=== PATIENT | male | born 1965 | race Caucasian/White ===

== ENCOUNTER 2016-04-05 14:47 | Emergency (ER) | payer MEDICARE, MEDICAID ==
[~2016-04-05 14:47] MED LIST: Donnatal Elixir 16.2 MG/5 ML UDCUP ONE; Iopamidol 370 76% 100 ML VIAL ONE; Ondansetron HCl/PF 4 MG/2 ML Vial ONE; Sodium Chloride 0.9% 1,000 ML BAG ONE
[2016-04-05 15:55] LABS: Blood, Urine Negative (Negative); Clarity Clear (Clear); Glucose, Urine (Dipstick) Negative (Negative); Leukocyte Negative (Negative); Nitrite Negative (Negative); Protein, Urine (Dipstick) 100 mg/dL (Neg-Trace); Urobilinogen 0.2 mg/dL (0.2-1.0); pH, Urine 5.5 (5.0-9.0)
[2016-04-05 15:57] LABS: Bilirubin Negative (Negative); Specific Gravity, Urine 1.038 (1.002-1.036)
[2016-04-05 16:14] LABS: Icto Negative (Negative); RBC/HPF None Seen HPF (0-3)
[2016-04-05] MEDS ORDERED: Mag-Al Plus 1200 MG/1200 MG/120 MG/30 ML UDCUP ONE (16:23)
[2016-04-05] MEDS ORDERED: Donnatal Elixir 16.2 MG/5 ML UDCUP ONE (16:23)
[2016-04-05] MEDS ORDERED: Lidocaine Viscous Sol 2% 15 ml UD Cup ONE (16:23)
[2016-04-05] MEDS ORDERED: Ondansetron HCl/PF 4 MG/2 ML Vial ONE ×2 (16:31→16:34)
[2016-04-05] MEDS ORDERED: Ketorolac Tromethamine 30 MG/ML VIAL ONE (16:31)
[2016-04-05] MEDS ORDERED: Hyoscyamine Sulfate SL 0.125 mg Tablet ONE (16:32)
[2016-04-05 16:41] LABS: ALT (SGPT) 49 U/L (0-55); AST (SGOT) 46 U/L (5-34); Albumin 3.9 g/dL (3.5-5.0); Alkaline Phosphatase 80 U/L (40-150); Amylase 47 U/L (25-125); Anion Gap 17 mmol/L (10-20); BUN (Urea Nitrogen) 11 mg/dL (8.9-20.6); Calc. Creatinine Clearance 0 mL/min (70-130); Calcium 9.2 mg/dL (7.8-10.44); Carbon Dioxide 23 mmol/L (22-29); Chloride 102 mmol/L (98-107); Estimated GFR-MDRD 84; Globulin 3.2 g/dL (2.4-3.5); Glucose 95 mg/dL (70-105); Lipase 22 U/L (8-78); Potassium 4.2 mmol/L (3.5-5.1); Protein, Total 7.1 g/dL (6.0-8.3); Sodium 138 mmol/L (136-145)
[2016-04-05 16:48] LABS: Band 6 % (5-11); Lymphocytes 30 % (21-51); MDiff Complete? YES; Mean Corpuscular HGB CONC 34.1 g/dL (32.0-36.0); Mean Corpuscular Hemoglobin 29.4 pg (27.0-31.0); Mean Corpuscular Volume 86.1 fl (80.0-94.0); Mean Platelet Volume 7.1 fL (7.4-10.4); Monocytes 9 % (0-10); Neutrophil 55 % (42-75); PLT Morphology Comment Appears Adequate; Platelet Count 276 thou/uL (130-400); RBC Distribution Width 12.4 % (11.5-14.5); Red Blood Cell (RBC) Count 5.45 mill/uL (4.70-6.10); White Blood Cell (WBC) Count 5.3 thou/uL (4.8-10.8)
--- NOTE | 2016-04-05 16:55 | RAD ---
FRONTAL RADIOGRAPH CHEST 04/05/2016 COMPARISON: 08/25/2007 HISTORY: Pain. FINDINGS: There is complete opacification of the right hemithorax with shift of the mediastinal structures to the right, a chronic finding suggesting prior right-sided pneumonectomy. Left lung appears clear. Osseous structures are stable. IMPRESSION: No acute findings. Stable appearance of the chest. POS: OFF
--- NOTE | 2016-04-05 18:19 | CT ---
CT ABDOMEN AND PELVIS 04/05/2016 HISTORY: Abdominal pain. COMPARISON: None. TECHNIQUE: Serial axial CT imaging at 5 mm intervals, from the lung bases through the pubic symphy sis, with IV contrast. Coronal reformatted imaging obtained. FINDINGS: Secondary to a markedly elevated right hemidiaphragm, the right lobe of the liver is not fully imaged. The imaged portions of the liver appear unremarkable. The spleen, pancreas, and adr enal glands are unremarkable. The kidneys appear unremarkable, as well. A stone is seen within the gallbladder lumen, measuring 1.1 cm. Linear pericardial calcification is noted inferiorly. There is a small fat-containing umbilical hernia. No focal area of bowel inflammatory change is seen. The appendix is not discretely visualized on th is examination. No right lower quadrant inflammatory change is noted. The vascular structures of the abdomen/pelvis appear patent. No pelvic retroperitoneal or mesenteri c lymphadenopathy. Nonenlarged nodes are noted at the root of the mesentery and in the peripancreat ic region. The osseous structures demonstrate lower lumbar spine facet hypertrophy and bilateral hi p degenerative change. IMPRESSION No acute findings. Secondary to elevation of the right hemidiaphragm, the liver is not fully imaged on this examination. POS: [facility]
--- NOTE | 2016-04-05 19:11 | ERRECORD ---
[facility] EMERGENCY RECORD HPI ABDOMINAL PAIN (16:26 LLDO) CHIEF COMPLAINT: Patient presents for evaluation of abdominal pain, Patient presents for evaluation of see triage note. 4 days constant pain or nausea w/o relief or vomiting. has had chills and fever. otc meds not helping. HISTORIAN: History provided by patient. LOCATION MALE: Symptoms are localized. QUALITY: Pain is dull in nature, described as aching. SEVERITY: Maximum severity of symptoms severe, Currently symptoms are moderate. RISK FACTORS MALE: Testicular torsion risk factors, not applicable for this patient, Abdominal aortic aneurysm risk factors, include age over 40 years, Coronary artery disease risk factors, include diabetes, include high cholesterol, include hypertension. ROS CONSTITUTIONAL: Historian reports chills, reports fatigue, reports malaise, reports weakness. (16:29 LLDO) EYES: Negative eye review of systems, Historian denies eye pain, denies eye redness, denies eye discharge. (16:33 LLDO) ENT: Negative ears, nose, throat review of systems, Historian denies otalgia, denies rhinorrhea, denies sinus pain, denies sore throat. (16:33 LLDO) CARDIOVASCULAR: Negative cardiovascular review of systems, Historian denies chest pain, no radiation, Historian denies diaphoresis, denies paroxysmal nocturnal dyspnea, denies syncope. (16:33 LLDO) RESPIRATORY: Negative respiratory review of systems, Historian denies cough, denies shortness of breath, denies sputum. (16:33 LLDO) GI: Historian reports abdominal pain, reports anorexia, reports appetite changes, denies constipation, denies diarrhea, denies hematemesis, denies hematochezia, denies jaundice, denies melena, reports nausea, denies vomiting. (16:29 LLDO) MUSCULOSKELETAL: Negative musculoskeletal review of systems, Historian denies arthralgias, denies fall, denies injury, denies myalgias. (16:33 LLDO) NEUROLOGIC: Negative neurologic review of systems, Historian denies confusion, denies focal weakness, denies mental status changes, denies sensory changes. (16:33 LLDO) HEMO/LYMPHATIC: Normal hematologic/lymphatic system review, Historian denies abnormal blood clotting, denies gum bleeding, denies petechiae. (16:33 LLDO) ALLERGIC/IMMUNOLOGIC: Normal allergy/immunologic system review, Historian denies eczema, denies environmental allergies, denies food allergies. (16:33 LLDO) PSYCHIATRIC: Negative psychiatric review of systems, Historian denies alcohol abuse, denies anxiety, denies depression, denies drug &a-1R&a+25V*p+0X*m4676G*c202B*c15G*c2P*p-0X&a-25V&a+1R Name: Richie Vasques : 1965 M50 MedRec: [id number] AcctNum: [id number] Prepared: TueApr 05, 2016 19:13 by Interface Page 1 of 5 pMD [facility] EMERGENCY RECORD abuse, denies hallucinations. (16:33 LLDO) NOTES: All systems reviewed, negative except as described above. (16:29 LLDO) PAST MEDICAL HISTORY MEDICAL HISTORY: Flu vaccine up to date, Tetanus immunization up to date, Past medical history includes history of hyperlipidemia, Past medical history includes history of malignancy, primary site lung, treated with surgery, Past medical history includes musculoskeletal disorder, chronic back pain, Past medical history includes history of hypertension, Notes: SEIZURES, Past medical history includes history of diabetes,. COPD. (15:10 AWAT) MALE SURGICAL HISTORY: Surgical history of orthopedic surgery, Right Elbow, Date of surgery October,, ONE LUNG REMOVED FROM CA,. BACK SX,. (15:10 AWAT) PSYCHIATRIC HISTORY: No previous psychiatric history. (15:10 AWAT) SOCIAL HISTORY: Patient drinks socially, rarely, Patient denies drug use, Patient has no smoking history. (15:10 AWAT) NOTES: Nursing records reviewed, Agree with nursing records, Medication list reviewed. (16:33 LLDO) KNOWN ALLERGIES ALLERGIES: (Unconfirmed) FOOD ALLERGIES: (Unconfirmed) LATEX ALLERGY? (Unconfirmed) No Known Allergies CURRENT MEDICATIONS ProAir HFA: HFA AEROSOL WITH ADAPTER (GRAM) : Strength - 90 mcg : INHALATION Patient Dose: As Needed. (15:05 AWAT) pravastatin: TABLET : Strength - 40 mg : ORAL Patient Dose: 40 mg Oral once a day. (15:05 AWAT) amLODIPine: TABLET : Strength - 5 mg : ORAL Patient Dose: 5 mg Oral 2 times a day. (15:06 AWAT) Spiriva with HandiHaler: CAPSULE, WITH INHALATION DEVICE : Strength - 18 mcg : INHALATION Patient Dose: 2 times a day. (15:06 AWAT) Symbicort: HFA AEROSOL WITH ADAPTER (GRAM) : Strength - 160 mcg-4.5 mcg/actuation : INHALATION Patient Dose: Unknown. (15:07 AWAT) Topamax: TABLET : Strength - 100 mg : ORAL Patient Dose: 100 mg Oral 2 times a day. (15:08 AWAT) &a-1R&a+25V*p+0X*i4091V*c202B*c15G*c2P*p-0X&a-25V&a+1R Name: Richie Vasques : 1965 M50 MedRec: [id number] AcctNum: [id number] Prepared: TueApr 05, 2016 19:13 by Interface Page 2 of 5 pMD [facility] EMERGENCY RECORD VITAL SIGNS VITAL SIGNS: BP: 149/87, Pulse: 95, Resp: 18, Temp: 98.3 (Oral), Pain: 6 (Constant), O2 sat: 97 on Room Air, Time: 04/05/2016 15:00. (15:00 AWAT) BP: 142/92, Pulse: 86, Resp: 20, Temp: 98.7, Time: 04/05/2016 19:01. (19:01 LPOL) PHYSICAL EXAM CONSTITUTIONAL: Vital Signs Reviewed, Patient afebrile, Pulse normal, Blood pressure, BP ELEVATED SLIGHTLY, Respiratory rate normal, Patient appears, uncomfortable, Patient appears, in moderate pain distress, SEVERE WITH PALPATION OR MOVEMENT, Patient alert and oriented to person, place and time, Nursing notes reviewed. (16:31 LLDO) HEAD: Head exam normal, Head exam included findings of head atraumatic, normocephalic. (16:33 LLDO) EYES: Eye exam normal, Eye exam included findings of eyelids normal to inspection, Pupils equally round and reactive to light, Extraocular muscles intact. (16:33 LLDO) ENT: ENT exam normal, Ear exam normal, Nose exam normal. (16:33 LLDO) NECK: Neck exam normal, Neck exam included findings of normal range of motion, Trachea midline, no meningeal signs, no tenderness. (16:33 LLDO) RESPIRATORY CHEST: Respiratory and chest exam normal, Respiratory exam included findings of no respiratory distress, Breath sounds clear, Chest exam included findings of chest movement symmetrical, Chest expansion equal. (16:33 LLDO) CARDIOVASCULAR: Cardiovascular assessment normal, Cardiovascular exam included findings of heart rate regular rate and rhythm, Heart sounds normal. (16:33 LLDO) ABDOMEN MALE: Abdominal exam included findings of abdomen tender, to the epigastric region, to the right upper quadrant, moderate intensity, Bowel sounds, hyperactive, Spleen normal, no distension, no mass, no pulsatile masses, McBurney's point non-tender, no peritoneal signs, Paetl's sign present. (16:31 LLDO) BACK: Back exam normal, Back exam included findings of normal inspection, range of motion normal. (16:33 LLDO) UPPER EXTREMITY: Upper extremity exam normal, Upper extremity exam included findings of inspection normal, Range of motion normal. (16:33 LLDO) LOWER EXTREMITY: Lower extremity exam normal, Lower extremity exam included findings of inspection normal, Range of motion normal. (16:33 LLDO) NEURO: Neuro exam normal, Neuro exam findings include patient oriented to person, place and time, Speech normal, Florence coma scale 15. (16:33 LLDO) SKIN: Skin exam normal, Skin exam included findings of skin warm, &a-1R&a+25V*p+0X*v9631N*c202B*c15G*c2P*p-0X&a-25V&a+1R Name: Richie Vasques : 1965 M50 MedRec: [id number] AcctNum: [id number] Prepared: TueApr 05, 2016 19:13 by Interface Page 3 of 5 pMD [facility] EMERGENCY RECORD dry, and normal in color, no rash. (16:33 LLDO) PSYCHIATRIC: Psychiatric exam normal, Psychiatric exam included findings of patient oriented to person place and time, Normal affect, Judgment normal. (16:33 LLDO) MEDICATION ADMINISTRATION SUMMARY Drug Name: sodium chloride 0.9 % intravenous, Dose Ordered: 1 L, Route: IV Fluid Infusion, Status: Given, Time: 16:44 04/05/2016, Drug Name: Levsin/SL, Dose Ordered: 0.5 mg, Route: Sublingual, Status: Given, Time: 16:40 04/05/2016, Drug Name: Zofran intravenous, Dose Ordered: 8 mg, Route: IV Push, Status: Given, Time: 16:40 04/05/2016, Drug Name: Toradol injection, Dose Ordered: 30 mg, Route: IV Push, Status: Given, Time: 16:39 04/05/2016, Drug Name: *GI COCKTAIL- GREEN, Dose Ordered: * , Route: Oral, Status: Given, Time: 16:27 04/05/2016, *Additional information available in notes, Detailed record available in Medication Service section. PROBLEM LIST No recorded problems DIAGNOSIS (18:49 LLDO) FINAL: PRIMARY: Cholelithiasis, ADDITIONAL: ACUTE CHOLECYSTITIS, UTI SITE NOT SPECIFIED. PRESCRIPTION (18:50 LLDO) Keflex: CAPSULE (HARD, SOFT, ETC.) : 500 mg : ORAL : Quantity: 1 Unit: cap(s) Route: ORAL Schedule: 3 times a day Dispense: 30 May substitute. Refills: No Refills . NOTES: No Refills. Septra DS: TABLET : 800 mg-160 mg : ORAL : Quantity: 1 Unit: tab(s) Route: ORAL Schedule: 2 times a day (before meals) Dispense: 20 May substitute. Refills: No Refills . NOTES: ^s=No Refills No Refills. Tylenol-Codeine #3: TABLET : 300 mg-30 mg : ORAL : Quantity: 1-2 Unit: tab(s) Route: ORAL Schedule: every 4 hours prn Dispense: 30 Unit: tab(s) May substitute. Refills: No Refills . NOTES: ^s=^s=No Refills No Refills No Refills. DISPOSITION PATIENT: Disposition Type: Discharge, Disposition: *Discharge Home. (18:49 LLDO) &a-1R&a+25V*p+0X*z4777M*c202B*c15G*c2P*p-0X&a-25V&a+1R Name: Richie Vasques : 1965 M50 MedRec: [id number] AcctNum: [id number] Prepared: TueApr 05, 2016 19:13 by Interface Page 4 of 5 pMD [facility] EMERGENCY RECORD Patient left the department. (19:06 LPOL) Anaya: AWAT=JUSTICE Walter, Marquise LL=MD Anirudh, Jose LPOL=JUSTICE Dawn, Erika &a-1R&a+25V*p+0X*e2179M*c202B*c15G*c2P*p-0X&a-25V&a+1R Name: Richie Vasques : 1965 M50 MedRec: [id number] AcctNum: [id number] Prepared: TueApr 05, 2016 19:13 by Interface Page 5 of 5 pMD [facility]
--- NOTE | 2016-04-05 19:17 | PICIS ---
[facility] EMERGENCY RECORD TRIAGE (15:04 AWAT) TRIAGE NOTES: REPORTS THAT HE HAS BEEN SICK EVERY SINCE EATING EGGS LAST TUESDAY MORNING. CONSTANT GASTRIC REGIONAL PAIN W NAUSEA. HE SAYS HE HAS HAD CHILLS & SWEATS SINCE THEN. WHEN HE EATS NOW HE HAS INCREASED GASTRIC PAIN. (15:04 AWAT) PATIENT: NAME: Richie Vasques, AGE: 50, GENDER: male, : Tue1965, TIME OF GREET: TueApr 05, 2016 14:48, PREFERRED LANGUAGE: Georgian, ETHNICITY: Not or , ECODE BILLING MAP: [facility], SSN: [id number], Zip Code: [address], KG WEIGHT: [phone], PHONE: , , , PERSON ID: [id number], PCP: DONNA SIMS. (15:04 AWAT) COMPLAINT: POSS FOOD POISON. (15:04 AWAT) ADMISSION: URGENCY: 4 Non Urgent, ADMISSION SOURCE: Home, TRANSPORT: Walk-in, BED: ED -H01. (15:04 AWAT) SIRS SCORING: Heart Rate 55-109 (0), Temp range 96.8-101.1 (0), respiratory rate 12-24 (0), Mental Status altered: no (0). (15:10 AWAT) PROVIDERS: TRIAGE NURSE: Marquise Walter RN. (15:04 AWAT) VITAL SIGNS: BP 149/87, Pulse 95, Resp 18, Temp 98.3, (Oral), Pain 6, (Constant), O2 Sat 97, on Room Air, Time 04/05/2016 15:00. (15:00 AWAT) PREVIOUS VISIT ALLERGIES: No Known Allergies. (15:04 AWAT) No Known Allergies. (15:10 AWAT) KNOWN ALLERGIES ALLERGIES: (Unconfirmed) FOOD ALLERGIES: (Unconfirmed) LATEX ALLERGY? (Unconfirmed) No Known Allergies CURRENT MEDICATIONS ProAir HFA: HFA AEROSOL WITH ADAPTER (GRAM) : Strength - 90 mcg : INHALATION Patient Dose: As Needed. (15:05 AWAT) pravastatin: TABLET : Strength - 40 mg : ORAL Patient Dose: 40 mg Oral once a day. (15:05 AWAT) amLODIPine: TABLET : Strength - 5 mg : ORAL Patient Dose: 5 mg Oral 2 times a day. (15:06 AWAT) Spiriva with HandiHaler: CAPSULE, WITH INHALATION DEVICE : Strength - 18 mcg : INHALATION Patient Dose: 2 times a day. (15:06 AWAT) Symbicort: HFA AEROSOL WITH ADAPTER (GRAM) : Strength - 160 mcg-4.5 mcg/actuation : INHALATION Patient Dose: Unknown. (15:07 AWAT) Topamax: TABLET : Strength - 100 mg : ORAL &a-1R&a+25V*p+0X*q1894A*c202B*c15G*c2P*p-0X&a-25V&a+1R Name: Richie Vasques : 1965 M50 MedRec: [id number] AcctNum: [id number] Prepared: TueApr 05, 2016 19:18 by Interface Page 1 of 10 pMD [facility] EMERGENCY RECORD Patient Dose: 100 mg Oral 2 times a day. (15:08 AWAT) VITAL SIGNS VITAL SIGNS: BP: 149/87, Pulse: 95, Resp: 18, Temp: 98.3 (Oral), Pain: 6 (Constant), O2 sat: 97 on Room Air, Time: 04/05/2016 15:00. (15:00 AWAT) BP: 142/92, Pulse: 86, Resp: 20, Temp: 98.7, Time: 04/05/2016 19:01. (19:01 LPOL) NURSING ASSESSMENT: ABDOMEN (15:30 AWAT) CONSTITUTIONAL: Simple assessment performed, Patient arrives ambulatory, Gait steady, History obtained from patient, Patient appears comfortable, Patient cooperative, Patient alert, Oriented to person, place and time, Skin warm, Skin dry, Skin normal in color, Mucous membranes pink, Mucous membranes moist, Patient is well-groomed, Patient complains of GASTRIC PAIN, CHILLS, SWEATS. PAIN: Onset of pain 04/01/2016 17:32, on a scale 0-10 patient rates pain as 6. ABDOMEN: Abdomen assessment findings include abdomen symmetrical, Abdomen soft, tender, to the epigastric region, Associated with nausea. GENITOURINARY MALE: Notes: DENIES PROBLEMS IN THIS REGION. NOTES: Emotional support needed and given, Patient tolerated procedure well. SAFETY: Side rails up, Cart/Stretcher in lowest position, Call light within reach, Hospital ID band on, Physician notified of above findings. NURSING PROCEDURE: DISCHARGE NOTE (19:01 LPOL) DISCHARGE: Patient discharged to home, ambulating without assistance, accompanied by //partner, Summary of Care printed/ provided, Patient requested and was provided an electronic copy of Discharge Instructions, Transition record given to patient, Discharge instructions given to patient, Simple or moderate discharge teaching performed, by mar, Prescriptions given and instructions on side effects given, Name of prescription(s) given: bactrim/tylenol#3/keflex, Medication reconciliation form given, Above person(s) verbalized understanding of discharge instructions and follow-up care, Patient treated and evaluated by physician. BELONGINGS: Belongings and valuables with patient upon arrival to the Emergency Department include:, Belongings remain with patient, Valuables remain with patient. VITAL SIGNS: BP: 142, / 92, Pulse: 86, Resp: 20, Temp: 98.7. NURSING PROCEDURE: IV (16:15 AWAT) PATIENT IDENITIFIER: Patient actively involved in identification process, Patient's identity verified by patient stating name, Patient's identity verified by patient stating date, Patient's identity verified by hospital ID robby, Patient's identity verified by family member. &a-1R&a+25V*p+0X*[id number]*c202B*c15G*c2P*p-0X&a-25V&a+1R Name: Richie Vasques Carlos : 1965 10 MedRec: [id number] AcctNum: [id number] Prepared: TueApr 05, 2016 19:18 by Interface Page 2 of 10 pMD [facility] EMERGENCY RECORD IV SITE 1: IV therapy indicated for hydration, IV therapy indicated for medication administration, IV established, to the left hand, using a 20 gauge catheter, in one attempt, IV site prepped with chloraprep, Saline lock established, Labs drawn at time of placement, labeled in the presence of the patient and sent to lab. FOLLOW-UP SITE 1: After procedure, sterile transparent dressing applied. NOTES: Patient tolerated procedure well. SAFETY: Side rails up, Cart/Stretcher in lowest position, Family at bedside, Call light within reach, Hospital ID band on, Physician notified of above findings. NURSING PROCEDURE: NURSE NOTES (17:10 AWAT) NURSES NOTES: Notes: PT HAS BEEN TO XRAY, THEN TO CT, NOW BACK TO THE HALLWAY BED. ORDER DETAILS Order Name: Amylase, Status: Active, Time: 16:14 04/05/2016, User: LL, - Ordered for: MD Hernandez Lloyd, - Entered by: MD Hernandez Lloyd - Rachel Apr 05, 2016 16:14, - Quantity: 1, Order Name: CBC with Differential, Status: Active, Time: 16:14 04/05/2016, User: LL, - Ordered for: MD Hernandez Lloyd, - Entered by: MD Hernandez Lloyd - Rachel Apr 05, 2016 16:14, - Quantity: 1, Order Name: Comprehensive Metabolic Panel, Status: Active, Time: 16:14 04/05/2016, User: LL, - Ordered for: MD Hernandez Lloyd, - Entered by: MD Hernandez Lloyd - [facility] Apr 05, 2016 16:14, - Quantity: 1, Order Name: CT Abdomen Pelvis W Con, Status: Active, Time: 16:23 04/05/2016, User: NENA, - Ordered for: MD Hernandez Lloyd, - Entered by: MD Hernandez Lloyd - [facility] Apr 05, 2016 16:23, - Quantity: 1, Order Name: Culture, Blood, Status: Active, Time: 16:21 04/05/2016, User: LL, - Ordered for: MD Hernandez Lloyd, - Entered by: MD Hernandez Lloyd - [facility] Apr 05, 2016 16:21, - Quantity: 1, Order Name: Culture, Urine, Status: Active, Time: 16:14 04/05/2016, User: LL, - Ordered for: MD Hernandez Lloyd, - Entered by: MD Hernandez Lloyd - [facility] Apr 05, 2016 16:14, - Quantity: 1, Order Name: Lactic Acid with repeat, Status: Active, Time: 16:22 04/05/2016, User: LLDO, &a-1R&a+25V*p+0X*w7011C*c202B*c15G*c2P*p-0X&a-25V&a+1R Name: Richie Vasques : 1965 M50 MedRec: [id number] AcctNum: [id number] Prepared: TueApr 05, 2016 19:18 by Interface Page 3 of 10 pMD [facility] EMERGENCY RECORD - Ordered for: MD Hernandez Lloyd, - Entered by: MD Hernandez Lloyd - TueApr 05, 2016 16:22, - Quantity: 1, Order Name: Lipase, Status: Active, Time: 16:14 04/05/2016, User: LL, - Ordered for: MD Hernandez Lloyd, - Entered by: MD Hernandez Lloyd - TueApr 05, 2016 16:14, - Quantity: 1, Order Name: SALINE LOCK, Status: Done, Time: 16:19 04/05/2016, User: EDILMA, - Ordered for: MD Hernandez Lloyd, - Entered by: MD Hernandez Lloyd - TueApr 05, 2016 16:14, - Quantity: 1, Order Name: Urinalysis with Microscopic, Status: Active, Time: 15:30 04/05/2016, User: JPER, - Ordered for: MD Hernandez Lloyd, - Entered by: JUSTICE Patricio, Nurys - TueApr 05, 2016 15:30, - Quantity: 1, Order Name: XR Chest 1 View Portable, Status: Active, Time: 16:14 04/05/2016, User: NENA, - Ordered for: MD Hernandez Lloyd, - Entered by: MD Hernandez Lloyd - TueApr 05, 2016 16:14, - Quantity: 1. MEDICATION ADMINISTRATION SUMMARY Drug Name: sodium chloride 0.9 % intravenous, Dose Ordered: 1 L, Route: IV Fluid Infusion, Status: Given, Time: 16:44 04/05/2016, Drug Name: Levsin/SL, Dose Ordered: 0.5 mg, Route: Sublingual, Status: Given, Time: 16:40 04/05/2016, Drug Name: Zofran intravenous, Dose Ordered: 8 mg, Route: IV Push, Status: Given, Time: 16:40 04/05/2016, Drug Name: Toradol injection, Dose Ordered: 30 mg, Route: IV Push, Status: Given, Time: 16:39 04/05/2016, Drug Name: *GI COCKTAIL- GREEN, Dose Ordered: * , Route: Oral, Status: Given, Time: 16:27 04/05/2016, *Additional information available in notes, Detailed record available in Medication Service section. MEDICATION SERVICE GI COCKTAIL- GREEN: Free Text order: GI COCKTAIL- GREEN : Dose: 40 mL : Oral (phenobarbital/Hyoscyamine Sulfate/atropine sulfate/Scopolamine Hydrobromide) [10 mL] Lidocaine Viscous (lidocaine HCl) [10 mL] MAG-AL (magnesium hydr : Oral Ordered by: Jose Hernandez MD Entered by: Jose Hernandez MD TueApr 05, 2016 16:12 , Acknowledged by: Marquise Walter RN TueApr 05, 2016 16:22 Documented as given by: Marquise Walter RN TueApr 05, 2016 16:27 Patient, Medication, Dose, Route and Time verified prior to administration. Amount given: 1 dose, Site: Medication administered P.O., Correct &a-1R&a+25V*p+0X*d0366E*c202B*c15G*c2P*p-0X&a-25V&a+1R Name: Richie Vasques : 1965 M50 MedRec: [id number] AcctNum: [id number] Prepared: TueApr 05, 2016 19:18 by Interface Page 4 of 10 pMD [facility] EMERGENCY RECORD patient, time, route, dose and medication confirmed prior to administration, Patient advised of actions and side-effects prior to administration, Allergies confirmed and medications reviewed prior to administration, Administered by awaters, Patient in position of comfort, Side rails up, Cart in lowest position, Family at bedside. : Follow Up : Response assessment performed, No signs or symptoms of allergic reaction noted, Decreased pain. (19:02 LPOL) Levsin/SL: Order: Levsin/SL (hyoscyamine sulfate) - Dose: 0.5 mg : Sublingual Schedule: Now Ordered by: Jose Hernandez MD Entered by: Jose Hernandez MD TueApr 05, 2016 16:25 , Acknowledged by: Marquise Walter RN TueApr 05, 2016 16:29 Documented as given by: Marquise Walter RN TueApr 05, 2016 16:40 Patient, Medication, Dose, Route and Time verified prior to administration. Amount given: 0.5MG, Site: Medication administered S.L., Correct patient, time, route, dose and medication confirmed prior to administration, Patient advised of actions and side-effects prior to administration, Allergies confirmed and medications reviewed prior to administration, Administered by AW, Patient in position of comfort, Side rails up, Cart in lowest position, Family at bedside, AFTER READING BACK & VERIFYING DOSE WITH DR HERNANDEZ. : Follow Up : Response assessment performed, No signs or symptoms of allergic reaction noted, Decreased pain. (19:02 LPOL) sodium chloride 0.9 % intravenous: Order: sodium chloride 0.9 % intravenous (0.9 % sodium chloride) - Dose: 1 L : IV Fluid Infusion Schedule: Bolus Ordered by: Jose Hernandez MD Entered by: Marquise Walter RN TueApr 05, 2016 16:44 Documented as given by: Marquise Walter RN TueApr 05, 2016 16:44 Patient, Medication, Dose, Route and Time verified prior to administration. Amount given: 1LITER, IV SITE #1 IV fluids established for hydration, IV SITE #1 into left hand, IV SITE #1 1st bag hung, amount 1 Liter hung, IV SITE #1 bolus of 1000 ml established, IV SITE #1 Rate of bolus, wide open, Catheter placement confirmed via flush prior to administration, IV site without signs or symptoms of infiltration during medication administration, No swelling during administration, No drainage during administration, IV flushed after administration, Correct patient, time, route, dose and medication confirmed prior to administration, Patient advised of actions and side-effects prior to administration, Allergies confirmed and medications reviewed prior to administration, Administered by JOSHUA RENDON, Patient in position of comfort, Side rails up, Cart in lowest position, Family at bedside. : Follow Up : Response assessment performed, No signs or &a-1R&a+25V*p+0X*p0426W*c202B*c15G*c2P*p-0X&a-25V&a+1R Name: Richie Vasques : 1965 M50 MedRec: [id number] AcctNum: [id number] Prepared: TueApr 05, 2016 19:18 by Interface Page 5 of 10 pMD [facility] - [facility] EMERGENCY RECORD symptoms of allergic reaction noted, _IV SITE #1:_, IV fluid infusion discontinued, on TueApr 05, 2016 18:30, Total fluid hydration time IV site 1 1 hour, 50 minutes, ., Total amount infused: 1000, IV Discontinued with catheter intact. (19:03 LPOL) Toradol injection: Order: Toradol injection (ketorolac tromethamine) - Dose: 30 mg : IV Push Schedule: Now Ordered by: Jose Hernandez MD Entered by: Jose Hernandez MD TueApr 05, 2016 16:24 , Acknowledged by: Marquise Walter RN TueApr 05, 2016 16:29 Documented as given by: Marquise Walter RN TueApr 05, 2016 16:39 Patient, Medication, Dose, Route and Time verified prior to administration. Amount given: 30mg, IV SITE #1 IVP, initial medication, Slowly, Catheter placement confirmed via flush prior to administration, IV site without signs or symptoms of infiltration during medication administration, No swelling during administration, No drainage during administration, IV flushed after administration, Correct patient, time, route, dose and medication confirmed prior to administration, Patient advised of actions and side-effects prior to administration, Allergies confirmed and medications reviewed prior to administration, Administered by aw, Patient in position of comfort, Side rails up, Cart in lowest position, Family at bedside. : Follow Up : Response assessment performed, No signs or symptoms of allergic reaction noted, Decreased pain, _IV SITE #1:_. (19:03 LPOL) Zofran intravenous: Order: Zofran intravenous (ondansetron HCl) - Dose: 8 mg : IV Push Schedule: Now Ordered by: Jose Hernandez MD Entered by: Jose Hernandez MD TueApr 05, 2016 16:24 , Acknowledged by: Marquise Walter RN TueApr 05, 2016 16:28 Documented as given by: Marquise Walter RN TueApr 05, 2016 16:40 Patient, Medication, Dose, Route and Time verified prior to administration. Amount given: 8MG, IV SITE #1 IVP, subsequent different medication, Slowly, Catheter placement confirmed via flush prior to administration, IV site without signs or symptoms of infiltration during medication administration, No swelling during administration, No drainage during administration, IV flushed after administration, Correct patient, time, route, dose and medication confirmed prior to administration, Patient advised of actions and side-effects prior to administration, Allergies confirmed and medications reviewed prior to administration, Administered by AWATERS, Patient in position of comfort, Side rails up, Cart in lowest position, Family at bedside. : Follow Up : Response assessment performed, No signs or symptoms of allergic reaction noted, Decreased nausea, _IV SITE #1:_. (19:03 LPOL) HPI ABDOMINAL PAIN (16:26 LLDO) &a-1R&a+25V*p+0X*g0405T*c202B*c15G*c2P*p-0X&a-25V&a+1R Name: Richie Vasques : 1965 M50 MedRec: [id number] AcctNum: [id number] Prepared: TueApr 05, 2016 19:18 by Interface Page 6 of 10 pMD [facility] EMERGENCY RECORD CHIEF COMPLAINT: Patient presents for evaluation of abdominal pain, Patient presents for evaluation of see triage note. 4 days constant pain or nausea w/o relief or vomiting. has had chills and fever. otc meds not helping. HISTORIAN: History provided by patient. LOCATION MALE: Symptoms are localized. QUALITY: Pain is dull in nature, described as aching. SEVERITY: Maximum severity of symptoms severe, Currently symptoms are moderate. RISK FACTORS MALE: Testicular torsion risk factors, not applicable for this patient, Abdominal aortic aneurysm risk factors, include age over 40 years, Coronary artery disease risk factors, include diabetes, include high cholesterol, include hypertension. ROS CONSTITUTIONAL: Historian reports chills, reports fatigue, reports malaise, reports weakness. (16:29 LLDO) EYES: Negative eye review of systems, Historian denies eye pain, denies eye redness, denies eye discharge. (16:33 LLDO) ENT: Negative ears, nose, throat review of systems, Historian denies otalgia, denies rhinorrhea, denies sinus pain, denies sore throat. (16:33 LLDO) CARDIOVASCULAR: Negative cardiovascular review of systems, Historian denies chest pain, no radiation, Historian denies diaphoresis, denies paroxysmal nocturnal dyspnea, denies syncope. (16:33 LLDO) RESPIRATORY: Negative respiratory review of systems, Historian denies cough, denies shortness of breath, denies sputum. (16:33 LLDO) GI: Historian reports abdominal pain, reports anorexia, reports appetite changes, denies constipation, denies diarrhea, denies hematemesis, denies hematochezia, denies jaundice, denies melena, reports nausea, denies vomiting. (16:29 LLDO) MUSCULOSKELETAL: Negative musculoskeletal review of systems, Historian denies arthralgias, denies fall, denies injury, denies myalgias. (16:33 LLDO) NEUROLOGIC: Negative neurologic review of systems, Historian denies confusion, denies focal weakness, denies mental status changes, denies sensory changes. (16:33 LLDO) HEMO/LYMPHATIC: Normal hematologic/lymphatic system review, Historian denies abnormal blood clotting, denies gum bleeding, denies petechiae. (16:33 LLDO) ALLERGIC/IMMUNOLOGIC: Normal allergy/immunologic system review, Historian denies eczema, denies environmental allergies, denies food allergies. (16:33 LLDO) PSYCHIATRIC: Negative psychiatric review of systems, Historian denies alcohol abuse, denies anxiety, denies depression, denies drug abuse, denies hallucinations. (16:33 LLDO) &a-1R&a+25V*p+0X*b3686S*c202B*c15G*c2P*p-0X&a-25V&a+1R Name: Richie Vasques : 1965 M50 MedRec: [id number] AcctNum: [id number] Prepared: TueApr 05, 2016 19:18 by Interface Page 7 of 10 pMD [facility] EMERGENCY RECORD NOTES: All systems reviewed, negative except as described above. (16:29 LLDO) PAST MEDICAL HISTORY MEDICAL HISTORY: Flu vaccine up to date, Tetanus immunization up to date, Past medical history includes history of hyperlipidemia, Past medical history includes history of malignancy, primary site lung, treated with surgery, Past medical history includes musculoskeletal disorder, chronic back pain, Past medical history includes history of hypertension, Notes: SEIZURES, Past medical history includes history of diabetes,. COPD. (15:10 AWAT) MALE SURGICAL HISTORY: Surgical history of orthopedic surgery, Right Elbow, Date of surgery October,, ONE LUNG REMOVED FROM CA,. BACK SX,. (15:10 AWAT) PSYCHIATRIC HISTORY: No previous psychiatric history. (15:10 AWAT) SOCIAL HISTORY: Patient drinks socially, rarely, Patient denies drug use, Patient has no smoking history. (15:10 AWAT) NOTES: Nursing records reviewed, Agree with nursing records, Medication list reviewed. (16:33 LLDO) PHYSICAL EXAM CONSTITUTIONAL: Vital Signs Reviewed, Patient afebrile, Pulse normal, Blood pressure, BP ELEVATED SLIGHTLY, Respiratory rate normal, Patient appears, uncomfortable, Patient appears, in moderate pain distress, SEVERE WITH PALPATION OR MOVEMENT, Patient alert and oriented to person, place and time, Nursing notes reviewed. (16:31 LLDO) HEAD: Head exam normal, Head exam included findings of head atraumatic, normocephalic. (16:33 LLDO) EYES: Eye exam normal, Eye exam included findings of eyelids normal to inspection, Pupils equally round and reactive to light, Extraocular muscles intact. (16:33 LLDO) ENT: ENT exam normal, Ear exam normal, Nose exam normal. (16:33 LLDO) NECK: Neck exam normal, Neck exam included findings of normal range of motion, Trachea midline, no meningeal signs, no tenderness. (16:33 LLDO) RESPIRATORY CHEST: Respiratory and chest exam normal, Respiratory exam included findings of no respiratory distress, Breath sounds clear, Chest exam included findings of chest movement symmetrical, Chest expansion equal. (16:33 LLDO) CARDIOVASCULAR: Cardiovascular assessment normal, Cardiovascular exam included findings of heart rate regular rate and rhythm, Heart sounds normal. (16:33 LLDO) ABDOMEN MALE: Abdominal exam included findings of abdomen tender, to the epigastric region, to the right upper quadrant, moderate intensity, Bowel &a-1R&a+25V*p+0X*u7915I*c202B*c15G*c2P*p-0X&a-25V&a+1R Name: Richie Vasques Carlos : 1965 M50 MedRec: [id number] AcctNum: [id number] Prepared: TueApr 05, 2016 19:18 by Interface Page 8 of 10 pMD [facility] EMERGENCY RECORD sounds, hyperactive, Spleen normal, no distension, no mass, no pulsatile masses, McBurney's point non-tender, no peritoneal signs, Patel's sign present. (16:31 LLDO) BACK: Back exam normal, Back exam included findings of normal inspection, range of motion normal. (16:33 LLDO) UPPER EXTREMITY: Upper extremity exam normal, Upper extremity exam included findings of inspection normal, Range of motion normal. (16:33 LLDO) LOWER EXTREMITY: Lower extremity exam normal, Lower extremity exam included findings of inspection normal, Range of motion normal. (16:33 LLDO) NEURO: Neuro exam normal, Neuro exam findings include patient oriented to person, place and time, Speech normal, Alba coma scale 15. (16:33 LLDO) SKIN: Skin exam normal, Skin exam included findings of skin warm, dry, and normal in color, no rash. (16:33 LLDO) PSYCHIATRIC: Psychiatric exam normal, Psychiatric exam included findings of patient oriented to person place and time, Normal affect, Judgment normal. (16:33 LLDO) EVENTS TRANSFER: Triage to Emergency Main ED -H01. (TueApr 05, 2016 15:04 AWAT) Emergency Main ED -H01 to Triage. (15:08 AWAT) Emergency Triage to Main ED -H01. (15:41 AWAT) Removed from Emergency Main ED -H01. (19:06 LPOL) PROBLEM LIST No recorded problems DIAGNOSIS (18:49 LLDO) FINAL: PRIMARY: Cholelithiasis, ADDITIONAL: ACUTE CHOLECYSTITIS, UTI SITE NOT SPECIFIED. DISPOSITION PATIENT: Disposition Type: Discharge, Disposition: *Discharge Home. (18:49 LLDO) Patient left the department. (19:06 LPOL) INSTRUCTION (18:51 LLDO) DISCHARGE: UTI CYSTITIS MALE ADULT, CHOLELITHIASIS WITH COLIC PRESUMED. FOLLOWUP: Follow up with Primary Care Physician in 7-10 days. SPECIAL: Follow-up with your PCP. PRESCRIPTION (18:50 LLDO) Keflex: CAPSULE (HARD, SOFT, ETC.) : 500 mg : ORAL : Quantity: 1 Unit: cap(s) Route: ORAL Schedule: 3 times a day Dispense: 30 May substitute. Refills: No Refills . &a-1R&a+25V*p+0X*a0833Q*c202B*c15G*c2P*p-0X&a-25V&a+1R Name: Richie Vasques Carlos : 1965 M50 MedRec: [id number] AcctNum: [id number] Prepared: TueApr 05, 2016 19:18 by Interface Page 9 of 10 pMD [facility] EMERGENCY RECORD NOTES: No Refills. Septra DS: TABLET : 800 mg-160 mg : ORAL : Quantity: 1 Unit: tab(s) Route: ORAL Schedule: 2 times a day (before meals) Dispense: 20 May substitute. Refills: No Refills . NOTES: ^s=No Refills No Refills. Tylenol-Codeine #3: TABLET : 300 mg-30 mg : ORAL : Quantity: 1-2 Unit: tab(s) Route: ORAL Schedule: every 4 hours prn Dispense: 30 Unit: tab(s) May substitute. Refills: No Refills . NOTES: ^s=^s=No Refills No Refills No Refills. IMAGING *DISCHARGE INSTRUCTIONS RECEIPT: Image captured from scanner. (19:04 LPOL) Page 2 added. Image captured from scanner. (19:04 LPOL) *SUPPLY CHARGE SHEET: Image captured from scanner. (19:08 LPOL) ADMIN (18:51 LLDO) DIGITAL SIGNATURE: MD Hernandez Lloyd. Anaya: AWAT=JUSTICE Walter, Marquise LLDO=MD Hernandez Lloyd LPOL=JUSTICE Dawn, Erika &a-1R&a+25V*p+0X*h7718Z*c202B*c15G*c2P*p-0X&a-25V&a+1R Name: Layo Richie Carlos : 1965 M50 MedRec: [id number] AcctNum: [id number] Prepared: TueApr 05, 2016 19:18 by Interface Page 10 of 10 pMD [facility] MEDICATION RECONCILIATION You were seen in the Emergency Department on: TueApr 05, 2016 KNOWN ALLERGIES ALLERGIES: (Unconfirmed) FOOD ALLERGIES: (Unconfirmed) LATEX ALLERGY? (Unconfirmed) No Known Allergies MEDICATIONS GIVEN WHILE IN THE EMERGENCY DEPARTMENT GI COCKTAIL- GREEN : Dose: 40 mL : Oral (phenobarbital/Hyoscyamine Sulfate/atropine sulfate/Scopolamine Hydrobromide) [10 mL] Lidocaine Viscous (lidocaine HCl) [10 mL] MAG-AL (magnesium hydr : Oral Toradol injection (ketorolac tromethamine) - Dose: 30 milligram(s) : IV Push Zofran intravenous (ondansetron HCl) - Dose: 8 milligram(s) : IV Push Levsin/SL (hyoscyamine sulfate) - Dose: 0.5 milligram(s) : Sublingual sodium chloride 0.9 % intravenous (0.9 % sodium chloride) - Dose: 1 liter(s) : IV Fluid Infusion HOME MEDICATIONS CONTINUE PRESCRIBED amLODIPine : TABLET : Strength - 5 mg : ORAL Continue as prescribed Patient had been takin mg Oral 2 times a day. pravastatin : TABLET : Strength - 40 mg : ORAL Continue as prescribed Patient had been takin mg Oral once a day. ProAir HFA : HFA AEROSOL WITH ADAPTER (GRAM) : Strength - 90 mcg : INHALATION Continue as prescribed Patient had been taking: As Needed. Spiriva with HandiHaler : CAPSULE, WITH INHALATION DEVICE : Strength - 18 mcg : INHALATION Continue as prescribed Patient had been takin times a day. &a-1R&a+25V*p+0X*[id number]*c202B*c15G*c2P*p-0X&a-25V&a+1R Name: Richie Vasques : 1965 M50 MedRec: [id number] AcctNum: [id number] Prepared: TueApr 05, 2016 19:18 by Interface pMD [facility] MEDICATION RECONCILIATION Symbicort : HFA AEROSOL WITH ADAPTER (GRAM) : Strength - 160 mcg-4.5 mcg/actuation : INHALATION Continue as prescribed Patient had been taking: Dose unknown Topamax : TABLET : Strength - 100 mg : ORAL Continue as prescribed Patient had been takin mg Oral 2 times a day. Notes from the emergency department Reviewed with family Reviewed with patient PRESCRIPTIONS (3) Printed (3) Keflex : CAPSULE (HARD, SOFT, ETC.) : 500 mg : ORAL Quantity: 1, Unit: cap(s), Route: ORAL, Schedule: 3 times a day, Dispense: 30 Septra DS : TABLET : 800 mg-160 mg : ORAL Quantity: 1, Unit: tab(s), Route: ORAL, Schedule: 2 times a day (before meals), Dispense: 20 &a-1R&a+25V*p+0X*[id number]*c202B*c15G*c2P*p-0X&a-25V&a+1R Name: Richie Vasques : 1965 M50 MedRec: [id number] AcctNum: [id number] Prepared: TueApr 05, 2016 19:18 by Interface pMD [facility]TDD
== END 2016-04-05 19:00 | disposition home or self-care (01) ==
LOC: MADERS 14:47
DX: K80.00 Calculus of gallbladder with acute cholecystitis without obstruction (principal); N39.0 Urinary tract infection, site not specified; I10 Essential (primary) hypertension; E11.9 Type 2 diabetes mellitus without complications; J44.9 Chronic obstructive pulmonary disease, unspecified; E78.5 Hyperlipidemia, unspecified; Z85.118 Personal history of other malignant neoplasm of bronchus and lung; Z79.899 Other long term (current) drug therapy
CPT/HCPCS: 36415; 71010; 74177; 80053; 81001; 82150; 83605; 83690; 85025; 87040; 87086; 96361; 96374; 96375; J1885; J2405; J7050

== ENCOUNTER 2017-12-11 18:26 | Emergency (ER) | payer MEDICARE, MEDICAID ==
[~2017-12-11 18:26] MED LIST changes: -Donnatal Elixir 16.2 MG/5 ML UDCUP ONE; -Iopamidol 370 76% 100 ML VIAL ONE; -Ondansetron HCl/PF 4 MG/2 ML Vial ONE
[2017-12-11 18:57] LABS: #Basophils 0.1 thou/uL (0.0-0.2); #Eosinphils 0.1 thou/uL (0.0-0.7); #Lymphocytes 3.7 thou/uL (1.20-3.40); #Monocytes 0.7 thou/uL (0.11-0.59); #Neutrophils 4.9 thou/uL (1.40-6.50); %Basophils 1.3 % (0.0-1.0); %Eosinophils 0.7 % (0.0-10.0); %Lymphocytes 39.2 % (21.0-51.0); %Monocytes 7.1 % (0.0-10.0); %Neutrophils 51.8 % (42.0-75.0); Hemoglobin 15.1 g/dL (14.0-18.0); Mean Corpuscular HGB CONC 32.9 g/dL (32.0-36.0); Mean Corpuscular Hemoglobin 28.6 pg (27.0-31.0); Mean Corpuscular Volume 86.7 fL (78.0-98.0); Mean Platelet Volume 6.4 fL (7.4-10.4); Platelet Count 348 thou/uL (130-400); RBC Distribution Width 12.3 % (11.5-14.5); Red Blood Cell (RBC) Count 5.28 mill/uL (4.70-6.10); White Blood Cell (WBC) Count 9.5 thou/uL (4.8-10.8)
[2017-12-11 19:08] LABS: Anion Gap 13 mmol/L (10-20); BUN (Urea Nitrogen) 11 mg/dL (8.9-20.6); Calc. Creatinine Clearance 0 mL/min (70-130); Calcium 9.8 mg/dL (7.8-10.44); Carbon Dioxide 25 mmol/L (22-29); Chloride 103 mmol/L (98-107); Estimated GFR-MDRD Greater than 90; Glucose 138 mg/dL (70-105); Potassium 3.7 mmol/L (3.5-5.1); Sodium 137 mmol/L (136-145)
[2017-12-11 19:12] LABS: CKMB 2.2 ng/mL (0-6.6); Troponin I Less than 0.010 ng/mL (< 0.028)
--- NOTE | 2017-12-11 19:18 | RAD ---
CHEST ONE VIEW: History: Chest pain. Comparison: 04-05-16 FINDINGS: Cardiac silhouette is predominately obscured by opacification of the right hemithorax that is similar in appearance to the prior study. Pulmonary vasculature in the left lung has become more engorged. L eft lung is hyperinflated. IMPRESSION: Right lung atelectasis is unchanged. Pulmonary vasculature is now somewhat engorged. Other findings a re stable. POS: [facility]
[2017-12-11] MEDS ORDERED: Ondansetron HCl/PF 4 MG/2 ML Vial ONE (19:28)
[2017-12-11] MEDS ORDERED: Morphine 4 MG/ML VIAL ONE (19:28)
== END 2017-12-11 20:35 | disposition short-term general hospital (02) ==
LOC: MADERS 18:26
DX: I48.91 Unspecified atrial fibrillation (principal); E78.5 Hyperlipidemia, unspecified; I10 Essential (primary) hypertension; E11.9 Type 2 diabetes mellitus without complications; J44.9 Chronic obstructive pulmonary disease, unspecified; Z79.899 Other long term (current) drug therapy
CPT/HCPCS: 71045; 80048; 82553; 83880; 84484; 85025; 93005; 94760; 96361; 96374; 96375; J2270; J2405; J7050

== ENCOUNTER 2018-07-13 07:44 | Emergency (ER) | payer MEDICARE, MEDICAID ==
--- NOTE | 2018-07-13 08:45 | RAD ---
2 views of the chest: 07/03/2018 COMPARISON: 04/28/2016 HISTORY: Remote history of right pneumonectomy. Cough for 2 weeks FINDINGS: There is complete opacification of the right hemithorax with deviation of the trachea to th e right, a stable finding. This is consistent with the provided history of right-sided pneumonectomy. Left lung appears clear. No acute findings. IMPRESSION: No acute findings.
== END 2018-07-13 09:00 | disposition home or self-care (01) ==
LOC: MADERS 07:44
DX: J06.9 Acute upper respiratory infection, unspecified (principal); E78.5 Hyperlipidemia, unspecified; I10 Essential (primary) hypertension; J44.9 Chronic obstructive pulmonary disease, unspecified; Z79.899 Other long term (current) drug therapy
CPT/HCPCS: 71046

== ENCOUNTER 2019-02-20 15:56 | Emergency (ER) | payer MEDICARE, MEDICAID | END 2019-02-20 17:55 | disposition home or self-care (01) | LOC: MADERS 15:56 | DX: S13.4XXA Sprain of ligaments of cervical spine, initial encounter (principal); I49.9 Cardiac arrhythmia, unspecified; I48.91 Unspecified atrial fibrillation; E78.5 Hyperlipidemia, unspecified; E11.9 Type 2 diabetes mellitus without complications; J44.9 Chronic obstructive pulmonary disease, unspecified; Z79.899 Other long term (current) drug therapy; X50.9XXA Other and unspecified overexertion or strenuous movements or postures, initial encounter | CPT/HCPCS: 99283 ==

== ENCOUNTER 2020-04-17 11:38 | Emergency (ER) | payer MEDICARE, MEDICAID ==
[2020-04-17] MEDS ORDERED: Ketorolac Tromethamine 60 MG/2 ML VIAL ONE (11:50)
[2020-04-17] MEDS ORDERED: Acetaminophen 500 MG TAB ONE (11:50)
== END 2020-04-17 13:02 | disposition home or self-care (01) ==
LOC: MADERS 11:38
DX: M75.102 Unspecified rotator cuff tear or rupture of left shoulder, not specified as traumatic (principal); I48.91 Unspecified atrial fibrillation; I10 Essential (primary) hypertension; E11.9 Type 2 diabetes mellitus without complications; J44.9 Chronic obstructive pulmonary disease, unspecified; E78.5 Hyperlipidemia, unspecified; Z85.118 Personal history of other malignant neoplasm of bronchus and lung; Z79.899 Other long term (current) drug therapy
CPT/HCPCS: 96372; J1885

== ENCOUNTER 2021-07-20 08:14 | Emergency (ER) | payer MEDICARE, MEDICAID ==
[2021-07-20] MEDS ORDERED: Ibuprofen 800 MG TAB ONE ×2 (08:38→08:41)
== END 2021-07-20 09:05 | disposition home or self-care (01) ==
LOC: MADERS 08:14
DX: S63.501A Unspecified sprain of right wrist, initial encounter (principal); I48.91 Unspecified atrial fibrillation; E78.5 Hyperlipidemia, unspecified; I10 Essential (primary) hypertension; E11.9 Type 2 diabetes mellitus without complications; J44.9 Chronic obstructive pulmonary disease, unspecified; W22.8XXA Striking against or struck by other objects, initial encounter; Y93.71 Activity, boxing; Z85.118 Personal history of other malignant neoplasm of bronchus and lung; Z79.01 Long term (current) use of anticoagulants; Z79.899 Other long term (current) drug therapy

== ENCOUNTER 2024-04-01 08:06 | Emergency (ER) | payer MEDICARE, MEDICAID ==
[2024-04-01] MEDS ORDERED: predniSONE 20 MG TAB ONE (08:31)
[2024-04-01] MEDS ORDERED: Ipratropium/Albuterol 3 ML NEB ONE ×2 (08:31→09:19)
[2024-04-01] MEDS ORDERED: Sodium Chloride 0.9% 100 ML ONE (10:03)
[2024-04-01] MEDS ORDERED: cefTRIAXone (ROCEPHIN) 1 GM VIAL ONE (10:03)
[2024-04-01 10:18] LABS: #Basophils 0.1 thou/uL (0.0-0.2); #Eosinophils 0.2 thou/uL (0.0-0.7); #Lymphocytes 1.8 thou/uL (1.20-3.40); #Monocytes 0.5 thou/uL (0.11-0.59); %Basophils 1.5 % (0.0-1.0); %Eosinophils 2.8 % (0.0-10.0); %Lymphocytes 31.9 % (21.0-51.0); %Monocytes 8.9 % (0.0-10.0); %Neutrophils 54.9 % (42.0-75.0); Hematocrit 41.5 % (42.0-52.0); Hemoglobin 13.5 g/dL (14.0-18.0); Mean Corpuscular HGB CONC 32.7 g/dL (32.0-36.0); Mean Corpuscular Hemoglobin 29.2 pg (27.0-31.0); Mean Corpuscular Volume 89.5 fl (78.0-98.0); Mean Platelet Volume 6.9 fL (7.4-10.4); Platelet Count 231 10x3/uL (130-400); RBC Distribution Width 12.8 % (11.5-14.5); Red Blood Cell (RBC) Count 4.63 mill/uL (4.70-6.10); White Blood Cell (WBC) Count 5.5 10x3/uL (4.8-10.8)
[2024-04-01 10:34] LABS: Anion Gap 15 mmol/L (10-20); BUN (Urea Nitrogen) 8 mg/dL (8.4-25.7); Calc. Creatinine Clearance 0 mL/min (70-130); Calcium 9.1 mg/dL (7.8-10.44); Carbon Dioxide 25 mmol/L (22-29); Chloride 105 mmol/L (98-107); Estimated GFR 107; Glucose 100 mg/dL (70-105); Potassium 3.6 mmol/L (3.5-5.1); Sodium 141 mmol/L (136-145)
== END 2024-04-01 11:10 | disposition short-term general hospital (02) ==
LOC: MADERS 08:06
DX: J44.1 Chronic obstructive pulmonary disease with (acute) exacerbation (principal); E78.5 Hyperlipidemia, unspecified; E11.9 Type 2 diabetes mellitus without complications; I10 Essential (primary) hypertension; Z79.899 Other long term (current) drug therapy; Z79.891 Long term (current) use of opiate analgesic
CPT/HCPCS: 71046; 80048; 84484; 85025; 93005; J0696; J7512; J7620